=== PATIENT | male | born 1980 | race Caucasian/White ===

== ENCOUNTER 2017-12-02 05:17 | Emergency (ER) | payer SELFPAY ==
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
[2017-12-02] MEDS ORDERED: Diphtheria,Pertussis(Acell),Tetanus Vaccine 0.5 ML SDV IM ONE (06:00)
== END 2017-12-02 06:11 | disposition home or self-care (01) ==
LOC: JP.ED 05:17
DX: S41.151A Open bite of right upper arm, initial encounter (principal); S40.021A Contusion of right upper arm, initial encounter; Y04.1XXA Assault by human bite, initial encounter; Z23 Encounter for immunization
CPT/HCPCS: 90471; 90715; 99283-25